=== PATIENT | male | born 1960 | race Caucasian/White ===

== ENCOUNTER 2022-10-18 12:50 | Emergency (ER) | payer BC ==
[~2022-10-18] VITALS: Ht 180.3 cm; Wt 104.3 kg
== END 2022-10-18 14:10 | disposition short-term general hospital (02) ==
LOC: ED 12:50
DX: S61.412A Laceration without foreign body of left hand, initial encounter (principal); W25.XXXA Contact with sharp glass, initial encounter; Y93.89 Activity, other specified; Y92.89 Other specified places as the place of occurrence of the external cause; Y99.8 Other external cause status